=== PATIENT | female | born 1995 | race Two or more races ===

== ENCOUNTER → 2016-06-01 21:45 | Emergency (ER) | payer OTHER ==
[~2016-06-01 21:45] MED LIST: ALBUTEROL MININEB NEB; ALBUTEROL17 GM INH; ALLERGY SYR1 DIS.SYR MC; CETIRIZINE HCL10 MG PO; FLAGYL250 M1 PO; IBUPROFEN800 MG PO; RANITIDINE HCL150 M1 PO; SYMBICORT80 INH; ZOFRAN ODT4 MG PO
== END | disposition left against medical advice (07) ==
LOC: CED 21:45
DX: Z53.21 Procedure and treatment not carried out due to patient leaving prior to being seen by health care provider (principal)
CPT/HCPCS: 84703